=== PATIENT | female | born 1990 | race Two or more races ===

== ENCOUNTER 2024-02-11 15:11 | Emergency (ER) | payer SELFPAY ==
[~2024-02-11] VITALS: Ht 154.9 cm; Wt 42.6 kg
[2024-02-11 15:20] VITALS: BP 99/76
[2024-02-11] MEDS ORDERED: TERBINAFINE1 % EX (15:27)
[2024-02-11] MEDS ORDERED: TERBINAFINE250 M1 PO (15:27)
[2024-02-11 15:30] VITALS: BP 103/64
[2024-02-11 15:35] VITALS: BP 103/64
== END 2024-02-11 15:42 | disposition home or self-care (01) | DRG 607 ==
LOC: ED 15:11
DX: B35.4 Tinea corporis (principal); J45.909 Unspecified asthma, uncomplicated

== ENCOUNTER 2024-02-15 13:35 | Emergency (ER) | payer SELFPAY ==
[~2024-02-15] VITALS: Ht 154.9 cm; Wt 52.1 kg
[~2024-02-15 13:35] MED LIST: TERBINAFINE1 % EX; TERBINAFINE250 M1 PO
[2024-02-15 13:52] VITALS: BP 94/64
[2024-02-15 14:00] VITALS: BP 94/53
[2024-02-15] MEDS ORDERED: DEXAMETHASONE SOD. PHOSPHATE 10 MG/ML VIAL IM ONE (14:10)
[2024-02-15 14:15] VITALS: BP 110/63
[2024-02-15 14:30] VITALS: BP 98/65
[2024-02-15 14:45] VITALS: BP 99/64
[2024-02-15] MEDS ORDERED: PREDNISONE20 MG PO (14:48)
[2024-02-15 15:05] VITALS: BP 99/64
== END 2024-02-15 15:06 | disposition home or self-care (01) | DRG 916 ==
LOC: ED 13:35
DX: T78.40XA Allergy, unspecified, initial encounter (principal); X58.XXXA Exposure to other specified factors, initial encounter

== ENCOUNTER 2024-02-20 20:30 | Emergency (ER) | payer SELFPAY ==
[2024-02-20] VITALS (7 sets, daily range): BP systolic 76–117; BP diastolic 40–73
[~2024-02-20] VITALS: Ht 154.9 cm; Wt 55.0 kg
[~2024-02-20 20:30] MED LIST changes: +PREDNISONE20 MG PO
[2024-02-20] MEDS ORDERED: methylPREDNISolone SODIUM SUCC 125 MG/2 ML SDV IV STA (20:38)
[2024-02-20] MEDS ORDERED: DiphenhydrAMINE HCL 50 MG/ML SDV IV STA (20:38)
[2024-02-20] MEDS ORDERED: FAMOTIDINE 10MG/ML 2ML SDV IV STA (20:38)
[2024-02-20] MEDS ORDERED: IPRATROPIUM-Albuterol 0.5MG-2.5MG/3 ML NEB ONE (20:45)
[2024-02-20] MEDS ORDERED: PEPCID20 MG PO (21:44)
[2024-02-20] MEDS ORDERED: STERAPRED DS10 MG PO (21:44)
[2024-02-20] MEDS ORDERED: CETIRIZINE10 MG PO (21:44)
[2024-02-20] MEDS ORDERED: predniSONE 20 MG/TAB PO ONE (21:45)
== END 2024-02-20 22:30 | disposition home or self-care (01) | DRG 607 ==
LOC: ED 20:30
DX: L50.0 Allergic urticaria (principal); F17.210 Nicotine dependence, cigarettes, uncomplicated

== ENCOUNTER 2024-05-04 08:23 | Emergency (ER) | payer SELFPAY ==
[~2024-05-04] VITALS: Ht 154.9 cm; Wt 45.3 kg
[~2024-05-04 08:23] MED LIST changes: +CETIRIZINE10 MG PO; +PEPCID20 MG PO; +STERAPRED DS10 MG PO
[2024-05-04 08:30] VITALS: BP 95/75
[2024-05-04] MEDS ORDERED: IPRATROPIUM-Albuterol 0.5MG-2.5MG/3 ML NEB ONE ×2 (08:35)
[2024-05-04 08:51] LABS: BASO% 0.5 % (0-3); EOS% 9.7 % (0-8); HEMATOCRIT 46.2 % (37.0-47.0); HEMOGLOBIN 15.4 g/dl (12.0-16.0); IMMATURE GRANULOCYTES 0.1 % (0.0-5.0); LYMPH% 29.3 % (15-41); MEAN CELL VOLUME 97.5 fL CALC (80.0-100.0); MEAN CORPUSCULAR HGB 32.5 pG CALC (26.0-32.0); MEAN CORPUSCULAR HGB CONC 33.3 g/dL CAL (32.0-36.0); MONO% 8.8 % (2-13); NEUT# 3.88 thou/uL (2.00-7.15); NEUT% 51.6 % (42-76); RED BLOOD COUNT 4.74 mill/uL (4.20-5.60); RED CELL DISTRI WIDTH 12.2 % (11.5-15.5)
[2024-05-04] MEDS ORDERED: IPRATROPIU0.5 MG/3 M IN (09:04)
[2024-05-04] MEDS ORDERED: VENTOLIN HFA108 MCG PO (09:04)
[2024-05-04] MEDS ORDERED: PREDNISONE50 MG PO (09:04)
[2024-05-04] MEDS ORDERED: predniSONE 20 MG/TAB PO ONE (09:05)
[2024-05-04 09:10] LABS: ALBUMIN 4.1 g/dL (3.2-5.0); BILIRUBIN, TOTAL 0.3 mg/dL (0.02-1.3); CREATININE 0.8 mg/dL (0.5-1.0); POTASSIUM 4.5 mmol/l (3.5-5.1)
[2024-05-04 09:45] VITALS: BP 137/105
[2024-05-04 09:47] VITALS: BP 134/116
[2024-05-04 09:54] VITALS: BP 134/90
== END 2024-05-04 09:55 | disposition home or self-care (01) | DRG 203 ==
LOC: ED 08:23
PROVIDERS: Family Medicine
DX: J45.901 Unspecified asthma with (acute) exacerbation (principal)